=== PATIENT | female | born 1980 | race African-American/Black ===

== ENCOUNTER 2017-08-15 11:20 | Emergency (ER) | payer MEDICAID ==
[~2017-08-15] VITALS: Ht 170.2 cm; Wt 76.0 kg
[2017-08-15 11:26] VITALS: BP 123/82
== END 2017-08-15 16:18 | disposition left against medical advice (07) ==
LOC: ER 15:44
DX: M54.9 Dorsalgia, unspecified (principal); M54.2 Cervicalgia; Z53.21 Procedure and treatment not carried out due to patient leaving prior to being seen by health care provider

== ENCOUNTER 2019-10-01 10:01 | Emergency (ER) | payer MEDICAID ==
[~2019-10-01] VITALS: Ht 167.6 cm; Wt 8.0 kg
[2019-10-01] MEDS ORDERED: ACETAMINOPHEN 325MG TABLET PO STA (10:40)
[2019-10-01] MEDS ORDERED: KETOROLAC 60MG/2ML VIAL IM STA (10:40)
[2019-10-01 12:08] VITALS: BP 112/50
== END 2019-10-01 12:29 | disposition home or self-care (01) ==
LOC: ER 10:01
DX: R05 Cough (principal); B34.9 Viral infection, unspecified; J45.909 Unspecified asthma, uncomplicated; F17.200 Nicotine dependence, unspecified, uncomplicated; Z88.6 Allergy status to analgesic agent
CPT/HCPCS: 71045; 96372; 99283; J1885

== ENCOUNTER 2021-01-06 01:31 | Emergency (ER) | payer MEDICAID ==
[~2021-01-06] VITALS: Ht 167.6 cm; Wt 66.0 kg
[2021-01-06] MEDS ORDERED: NALO4SPR BOTHNSTRLS (04:15)
[2021-01-06 04:25] VITALS: BP 139/79
[2021-01-06] MEDS ORDERED: ONDANSETRON 4MG ODT PO ONE (05:00)
== END 2021-01-06 05:30 | disposition home or self-care (01) ==
LOC: ER 01:31
DX: T40.601A Poisoning by unspecified narcotics, accidental (unintentional), initial encounter (principal); F10.10 Alcohol abuse, uncomplicated; F12.10 Cannabis abuse, uncomplicated; I49.9 Cardiac arrhythmia, unspecified; Z88.6 Allergy status to analgesic agent; Y90.9 Presence of alcohol in blood, level not specified; Y92.9 Unspecified place or not applicable
CPT/HCPCS: 93005; 99283; Q0162